=== PATIENT | female | born 1965 | race Caucasian/White ===

== ENCOUNTER → 2023-05-25 | Outpatient (CLI) | payer OTHER ==
[~2023-05-25] VITALS: Ht 2.5 cm; Wt 85.3 kg
== END | disposition home or self-care (01) ==
LOC: DTH 10:26
PROVIDERS: ATTEND Surgery
DX: Z71.3 Dietary counseling and surveillance (principal); E66.09 Other obesity due to excess calories; G47.33 Obstructive sleep apnea (adult) (pediatric); I10 Essential (primary) hypertension; M19.90 Unspecified osteoarthritis, unspecified site; E78.00 Pure hypercholesterolemia, unspecified; K76.0 Fatty (change of) liver, not elsewhere classified; Z68.34 Body mass index [BMI] 34.0-34.9, adult
CPT/HCPCS: 97802

== ENCOUNTER → 2023-05-25 | Outpatient (CLI) | payer OTHER ==
[2023-05-25 12:49] LABS: BASOPHILS # (AUTO) 0.03 K/uL (0.00-0.20); BASOPHILS % (AUTO) 0.5 % (0.0-5.0); IMMATURE GRANULOCYTE ABSOLUTE 0.02 K/uL (0-1); LYMPHOCYTES # (AUTO) 1.2 K/uL (1.0-4.8); LYMPHOCYTES % (AUTO) 18.1 % (21.0-51.0); MEAN CORPUSCULAR HEMOGLOBIN 28.7 pg (27.0-33.0); MEAN CORPUSCULAR HGB CONC 31.6 g/dL (32.0-36.0); MEAN CORPUSCULAR VOLUME 91.1 fL (79-99); MONOCYTES # (AUTO) 0.4 K/uL (0.1-1.0); MONOCYTES % (AUTO) 6.2 % (3.0-13.0); NEUTROPHILS # (AUTO) 4.7 K/uL (1.8-7.7); NEUTROPHILS % (AUTO) 71.9 % (40.0-77.0); PLATELET COUNT (AUTO) 225 K/uL (130-400); RED BLOOD CELL COUNT(AUTO) 4.94 MIL/uL (4.00-5.50); RED CELL DISTRIBUTION WIDTH 13.2 % (11.0-15.5); WHITE BLOOD COUNT (AUTO) 6.6 K/uL (4.8-10.8)
[2023-05-25 12:51] LABS: HEMOGLOBIN A1C 5.7 % (4.0-6.0)
[2023-05-25 13:19] LABS: MAGNESIUM 2.2 mg/dL (1.80-2.40)
[2023-05-25 13:32] LABS: ALBUMIN 4.4 g/dL (3.5-5.0); BILIRUBIN,TOTAL 0.4 mg/dL (0.2-1.0); CREATININE 0.8 mg/dL (0.5-1.5); POTASSIUM 3.8 mmol/L (3.5-5.1); T4 (THYROXINE) 7.5 ug/dL (4.7-13.3); THYROID STIMULATING HORMONE 2.17 uIU/mL (0.36-3.74); TOTAL PROTEIN, SERUM 8.3 g/dL (6.0-8.3)
== END | disposition home or self-care (01) ==
LOC: LAB 11:39
PROVIDERS: ATTEND Surgery
DX: E66.01 Morbid (severe) obesity due to excess calories (principal); I10 Essential (primary) hypertension; K76.0 Fatty (change of) liver, not elsewhere classified; M19.91 Primary osteoarthritis, unspecified site; G47.33 Obstructive sleep apnea (adult) (pediatric); E78.00 Pure hypercholesterolemia, unspecified; Z68.35 Body mass index [BMI] 35.0-35.9, adult
CPT/HCPCS: 36415; 80053; 80061; 82306; 82607; 82746; 83036; 83540; 83735; 84207; 84425; 84436; 84443; 84481; 84590; 84630; 85025

== ENCOUNTER → 2023-06-21 | Outpatient (CLI) | payer OTHER | END | disposition home or self-care (01) | LOC: DTH 11:33 | PROVIDERS: ATTEND Surgery | DX: Z71.3 Dietary counseling and surveillance (principal); I10 Essential (primary) hypertension; M19.91 Primary osteoarthritis, unspecified site; E78.00 Pure hypercholesterolemia, unspecified; K76.0 Fatty (change of) liver, not elsewhere classified; G47.33 Obstructive sleep apnea (adult) (pediatric); E66.09 Other obesity due to excess calories | CPT/HCPCS: 97803 ==

== ENCOUNTER → 2023-07-12 | Outpatient (CLI) | payer OTHER | END | disposition home or self-care (01) | LOC: DTH 11:13 | PROVIDERS: ATTEND Surgery | DX: I10 Essential (primary) hypertension (principal); M19.91 Primary osteoarthritis, unspecified site; E78.00 Pure hypercholesterolemia, unspecified; K76.0 Fatty (change of) liver, not elsewhere classified; E66.01 Morbid (severe) obesity due to excess calories | CPT/HCPCS: 97803 ==

== ENCOUNTER → 2023-09-05 | Outpatient (CLI) | payer OTHER | END | disposition home or self-care (01) | LOC: DTH 10:31 | PROVIDERS: ATTEND Surgery | DX: E66.09 Other obesity due to excess calories (principal); I10 Essential (primary) hypertension; K76.0 Fatty (change of) liver, not elsewhere classified; E78.00 Pure hypercholesterolemia, unspecified; Z68.34 Body mass index [BMI] 34.0-34.9, adult; Z71.3 Dietary counseling and surveillance | CPT/HCPCS: 97803 ==

== ENCOUNTER → 2023-09-07 | Outpatient (CLI) | payer OTHER | END | disposition home or self-care (01) | LOC: DTH 12:07 | PROVIDERS: ATTEND Surgery | DX: I11.0 Hypertensive heart disease with heart failure (principal); I50.9 Heart failure, unspecified; G47.33 Obstructive sleep apnea (adult) (pediatric); K21.9 Gastro-esophageal reflux disease without esophagitis; M19.91 Primary osteoarthritis, unspecified site; E78.00 Pure hypercholesterolemia, unspecified; K76.0 Fatty (change of) liver, not elsewhere classified; E66.09 Other obesity due to excess calories | CPT/HCPCS: 97803 ==

== ENCOUNTER → 2023-09-19 | Outpatient (CLI) | payer OTHER | END | disposition home or self-care (01) | LOC: DTH 08:14 | PROVIDERS: ATTEND Surgery | DX: E66.09 Other obesity due to excess calories (principal); G47.33 Obstructive sleep apnea (adult) (pediatric); E78.00 Pure hypercholesterolemia, unspecified; I10 Essential (primary) hypertension; K76.0 Fatty (change of) liver, not elsewhere classified; M19.90 Unspecified osteoarthritis, unspecified site; Z68.34 Body mass index [BMI] 34.0-34.9, adult; Z71.3 Dietary counseling and surveillance | CPT/HCPCS: 97803 ==

== ENCOUNTER → 2023-09-27 | Outpatient (CLI) | payer OTHER | END | disposition home or self-care (01) | LOC: DTH 10:00 | PROVIDERS: ATTEND Surgery | DX: E66.09 Other obesity due to excess calories (principal); I10 Essential (primary) hypertension; K76.0 Fatty (change of) liver, not elsewhere classified; E78.00 Pure hypercholesterolemia, unspecified; M19.90 Unspecified osteoarthritis, unspecified site; G47.33 Obstructive sleep apnea (adult) (pediatric); Z71.3 Dietary counseling and surveillance; Z68.34 Body mass index [BMI] 34.0-34.9, adult | CPT/HCPCS: 97803 ==

== ENCOUNTER 2023-10-19 12:00 | Observation (INO) | payer OTHER ==
[~2023-10-19] VITALS: Ht 154.9 cm; Wt 85.3 kg
[2023-10-20 14:39] LABS: BASOPHILS # (AUTO) 0.03 K/uL (0.00-0.20); BASOPHILS % (AUTO) 0.4 % (0.0-5.0); EOSINOPHILS # (AUTO) 0.19 K/uL (0.00-0.70); EOSINOPHILS % (AUTO) 2.4 % (0.0-8.0); HEMATOCRIT 38.9 % (36-48); IMMATURE GRANULOCYTE ABSOLUTE 0.04 K/uL (0-1); LYMPHOCYTES % (AUTO) 25.4 % (21.0-51.0); MEAN CORPUSCULAR HEMOGLOBIN 28.8 pg (27.0-33.0); MEAN CORPUSCULAR HGB CONC 32.6 g/dL (32.0-36.0); MEAN CORPUSCULAR VOLUME 88.2 fL (79-99); MONOCYTES # (AUTO) 0.5 K/uL (0.1-1.0); MONOCYTES % (AUTO) 6.2 % (3.0-13.0); NEUTROPHILS # (AUTO) 5.1 K/uL (1.8-7.7); NEUTROPHILS % (AUTO) 65.1 % (40.0-77.0); PLATELET COUNT (AUTO) 226 K/uL (130-400); RED BLOOD CELL COUNT(AUTO) 4.41 MIL/uL (4.00-5.50); RED CELL DISTRIBUTION WIDTH 13.2 % (11.0-15.5); WHITE BLOOD COUNT (AUTO) 7.9 K/uL (4.8-10.8)
[2023-10-20 14:57] LABS: CREATININE 0.9 mg/dL (0.5-1.0); POTASSIUM 3.9 mmol/L (3.5-5.1)
[2023-10-20 15:08] VITALS: BP 119/64; PULSE 78; RESP 19
[2023-10-20] MEDS ORDERED: LISI20TA24 PO (15:38)
[2023-10-20] MEDS ORDERED: ATOR10 PO (15:38)
[2023-10-25] VITALS (27 sets, daily range): BP systolic 121–146; BP diastolic 62–79; PULSE 70–105; RESP 10–18; O2SAT 96–98
[2023-10-25] MEDS: LACTATED RINGERS 1000ML 1,000 ML IV ONE (08:26)
[2023-10-25] MEDS: CEFAZOLIN SODIUM 2 GM VIAL ONE (08:30)
[2023-10-25] MEDS: METRONIDAZOLE 500MG/100ML BAG 200 ML ONE (08:30)
[2023-10-25] MEDS ORDERED: BUPIVACAINE/PF 0.5% 30ML VIAL ONE (09:31)
[2023-10-25] MEDS: FAMOTIDINE 20MG VIAL IV ONE (10:46)
[2023-10-25] MEDS: HYDROMORPHONE 1 MG INJ ONE (10:46)
[2023-10-25] MEDS ORDERED: LIDOCAINE PF 100MG/5ML (2%) SYRINGE 5ML ONE (10:50)
[2023-10-25] MEDS ORDERED: GLYCOPYRROLATE 0.2 MG/ML 5 ML VIAL ONE ×2 (10:50→11:48)
[2023-10-25] MEDS ORDERED: FENTANYL CITRATE PF 50 MCG/1 ML 2ML VIAL ONE (10:51)
[2023-10-25] MEDS ORDERED: PROPOFOL 10 MG/ML 20ML VIAL IV ONE (10:51)
[2023-10-25] MEDS ORDERED: MIDAZOLAM HCL 1 MG/ML 2ML VIAL ONE (10:51)
[2023-10-25] MEDS ORDERED: NOREPINEPHRINE BITARTRATE 1 MG/1 ML ML IV ONE (11:55)
[2023-10-25] MEDS: BUPIVACAINE/PF 0.25% 30ML VIAL IJ ONE (11:55)
[2023-10-25] MEDS ORDERED: FENTANYL CITRATE PF 50 MCG/1 ML 5ML AMP IV ONE (12:11)
[2023-10-25] MEDS ORDERED: ROCURONIUM BROMIDE 10MG/1ML 5ML VL ONE (12:14)
[2023-10-25] MEDS: ACETAMINOPHEN 1,000 MG/100 ML VIAL IV ONE (12:21)
[2023-10-25] MEDS ORDERED: ONDANSETRON 4MG INJ ONE (13:18)
[2023-10-25] MEDS ORDERED: DEXAMETHASONE SOD PHOSPHATE 4 MG/ML 1ML VIAL ONE (13:18)
[2023-10-25] MEDS ORDERED: 0.9%NACL 10ML VIAL IVP PRN (14:00)
[2023-10-25] MEDS ORDERED: HYDROMORPHONE 0.5 MG SYG (0.5MG/0.5ML) IVP PRN (14:00)
[2023-10-25] MEDS ORDERED: PROCHLORPERAZINE 10MG/2ML INJ IV PRN (14:00)
[2023-10-25] MEDS: POTASSIUM CHLORIDE 20MEQ/10ML 20 MEQ in DEXTROSE 5%-LACTATED RINGERS 1,000 ML IV SCH (14:00)
[2023-10-25] MEDS: LACTATED RINGERS 1000ML 1,000 ML IV SCH (14:00)
[2023-10-25] MEDS ORDERED: ONDANSETRON 4MG INJ IVP PRN (14:00)
[2023-10-25] MEDS: ONDANSETRON 4MG INJ ONE (14:13)
[2023-10-25] MEDS: KETOROLAC 30MG VIAL (30MG/ML) ONE (14:13)
[2023-10-25] MEDS: MORPHINE 4 MG SYG ONE ×2 (14:14→14:19)
[2023-10-25] MEDS: METOCLOPRAMIDE 10 MG/2 ML VIAL ONE (14:18)
[2023-10-25] MEDS ORDERED: HYDRALAZINE 20MG/ML VIAL IV PRN (14:30)
[2023-10-25] MEDS: MEPERIDINE-PF 25 MG/ML SYG ONE (15:15)
[2023-10-25] MEDS: KETOROLAC 15MG/ML VIAL (15MG/ML) IV PRN (20:54)
[2023-10-25] MEDS: ENOXAPARIN SODIUM 40 MG/0.4 ML SYRINGE SQ SCH (21:00)
[2023-10-26 00:09] VITALS: BP 117/69; PULSE 75; RESP 16
[2023-10-26 04:38] VITALS: BP 140/80; PULSE 109; RESP 20
[2023-10-26 06:18] VITALS: PULSE 97; RESP 18; O2SAT 96
[2023-10-26 07:55] VITALS: BP 136/76; PULSE 99; RESP 18
[2023-10-26 08:00] VITALS: O2SAT 96
[2023-10-26] MEDS: HYDROCODONE/ACETAMINOPHEN 7.5/325 MG 15 ML UDCUP PO PRN (08:44)
[2023-10-26 11:29] VITALS: BP 135/65; PULSE 86; RESP 16
== END 2023-10-26 15:00 | disposition home or self-care (01) ==
LOC: DAHIP 10-25 06:58 → 4DH 10-25 15:10
PROVIDERS: ADMIT Surgery; ATTEND Surgery
DX: E66.01 Morbid (severe) obesity due to excess calories (principal); I10 Essential (primary) hypertension; K75.81 Nonalcoholic steatohepatitis (NASH); E78.2 Mixed hyperlipidemia; E55.9 Vitamin D deficiency, unspecified; Z79.899 Other long term (current) drug therapy; Z98.890 Other specified postprocedural states
CPT/HCPCS: 80048; 84703 ×2; 85025; 86850 ×2; 86900 ×2; 86901 ×2; 36415 ×2; 93005; 43775; 47001; 96374; 96372 ×2; 88313; 88305; 88312; 88307; 97161; 97530; 43235; 96376; A6260; G0378 ×24; A4663; J7030; J7120 ×2; A4215 ×2; J3490 ×7; J3010 ×2; J0665 ×2; J2001; J2250; J2704; J2405 ×2; J2270 ×2; J1885 ×3; J1650 ×2; J1100; J2175; J2765; J3480; J0690 ×2; G0168; A4930; A4223; A4222; A4221; A4600; 94760; J1170